=== PATIENT | male | born 1985 | race African-American/Black ===

== ENCOUNTER 2017-11-24 22:44 | Inpatient (IN) | payer BC ==
[~2017-11-24] VITALS: Ht 177.8 cm; Wt 143.3 kg
[2017-11-24 22:55] VITALS: BP 130/90
[2017-11-24 23:23] LABS: ABSOLUTE BASOPHILS 0.2 thou/uL (0.0-0.2); ABSOLUTE EOSINOPHILS 0.1 thou/uL (0.0-0.7); ABSOLUTE LYMPHOCYTES 2.6 thou/uL (0.8-5.3); ABSOLUTE NEUTROPHILS 10.3 thou/uL (1.6-8.1); BASOPHILS 1.2 %; EOSINOPHILS 0.6 %; HEMATOCRIT 45.4 % (42.0-52.0); HEMOGLOBIN 15.5 gm/dL (14.0-18.0); LYMPHOCYTES 18.3 %; MCH 30.4 pg (26.0-34.0); MCHC 34.1 g/dL (28.0-37.0); MCV 89.1 fL (80.0-100.0); MONOCYTES 6.8 %; MPV 8.3 fl. (7.2-11.1); NUCLEATED RBCS 0 /100WBC; PLATELET COUNT* 264 thou/uL (150-400); POLYS 73.1 %; RBC 5.09 mil/uL (4.50-6.00); RDW-CV 13.3 % (10.5-14.5); WBC 14.1 thou/uL (4.0-11.0)
[2017-11-24 23:32] LABS: ANION GAP 10 mmol/L (7-16); BUN 14 mg/dL (7-18); CALCIUM 9.6 mg/dL (8.5-10.1); CHLORIDE 98 mmol/L (98-107); CO2 26 mmol/L (21-32); GLUCOSE 96 mg/dL (70-99); POTASSIUM 4.4 mmol/L (3.5-5.1); SODIUM 134 mmol/L (136-145)
[2017-11-24 23:35] LABS: URINE BLOOD 3+ (Negative); URINE CLARITY CLEAR; URINE COLOR BROWN; URINE GLUCOSE-RANDOM NEGATIVE (Negative); URINE KETONES NEGATIVE (Negative); URINE LEUKOCYTES-REFLEX NEGATIVE (Negative); URINE NITRITE-REFLEX NEGATIVE (Negative); URINE PROTEIN 2+ (Negative); URINE SPECIFIC GRAVITY 1.025 (1.005-1.030)
[2017-11-24 23:36] LABS: URINE BILIRUBIN 1+ (Negative)
[2017-11-24 23:38] LABS: ICTOTEST (BILI CONFIRMATORY) Negative (Negative)
[2017-11-24 23:43] LABS: AMORPHOUS URATES Moderate /LPF (None Seen); BACTERIA-REFLEX >30 Many /HPF (None Seen); COARSE GRANULAR CASTS 0-3 Few /LPF (None Seen); FINE GRANULAR CASTS 0-3 Few /LPF (None Seen); MUCUS 4-6 Moderate strn/LPF (None Seen); SQUAMOUS 0-3 Few /LPF (0-3); URINE RBC >20 Many /HPF (0-2); URINE WBC-REFLEX 0-5 Rare /HPF (0-5)
[2017-11-24 23:46] LABS: ALBUMIN 3.9 g/dL (3.4-5.0); ALKALINE PHOSPHATASE 66 U/L (46-116); SGOT 1378 U/L (15-37); SGPT 359 U/L (30-65); TOTAL BILIRUBIN 1.3 mg/dL (<0.1-1.0); TOTAL PROTEIN 8.3 g/dL (6.4-8.2)
[2017-11-25 00:07] LABS: AMP/METHAMP Negative (Negative); BARBITURATES Negative (Negative); BENZODIAZEPINES Negative (Negative); COCAINE Negative (Negative); METHADONE Negative (Negative); OPIATES Negative (Negative); PCP Negative (Negative); THC Negative (Negative)
[2017-11-25 01:50] VITALS: BP 134/78
[2017-11-25 02:05] VITALS: BP 121/82
[2017-11-25] MEDS ORDERED: TYLENOL325 MG PO (03:24)
[2017-11-25 08:00] VITALS: BP 129/84
[2017-11-25 08:13] LABS: CREATININE 1.1 mg/dL (0.6-1.3); MAGNESIUM 2.2 mg/dL (1.8-2.4); POTASSIUM 4.6 mmol/L (3.5-5.1)
--- NOTE | 2017-11-25 12:42 | EKG ---
[place] [address] ELECTROCARDIOGRAM REPORT Name: DEION ROCHA Room: [place] [address] ADM IN M.R.#: [id number] Admission: 11/25/17 Attend Phys: Ag Sanders, Discharge: Date of : 83 Report #: [id number] THIS REPORT FOR: //name// [facility] ED Test Date: 2017-11-24 Test Time: 23:07:56 Pat Name: DEION ROCHA Department: Room: [facility] Gender: M Chair Trimmer: MISTI : 1985 Requested By: Cornelia Mims Order Number: [id number] MD: Ernie Freitas Measurements Intervals [place] Rate: 113 P: 26 MT: 145 QRS: 43 QRSD: 80 T: 23 QT: 307 QTc: 421 Interpretive Statements Sinus tachycardia Probable left atrial enlargement Baseline wander in lead(s) V2 No previous ECG available for comparison Electronically Signed On 11-25-2017 12:42:07 AUDIOLOGY ASSISTANT by Ernie Freitas [email or web address] <ELECTRONICALLY SIGNED> By: Altagracia Freitas MD, [facility] 11/25/17 1242 06 06 Altagracia Freitas MD, [facility] /EPI
[2017-11-25 20:00] VITALS: BP 128/72
[2017-11-26] VITALS: BP 138/57
[2017-11-26 04:00] VITALS: BP 129/52
[2017-11-26 08:00] VITALS: BP 123/60
[2017-11-26 12:29] LABS: ABSOLUTE BASOPHILS 0.1 thou/uL (0.0-0.2); ABSOLUTE EOSINOPHILS 0.1 thou/uL (0.0-0.7); ABSOLUTE LYMPHOCYTES 1.8 thou/uL (0.8-5.3); ABSOLUTE MONOCYTES 0.6 thou/uL (0.0-1.2); ABSOLUTE NEUTROPHILS 7.8 thou/uL (1.6-8.1); BASOPHILS 0.5 %; EOSINOPHILS 0.6 %; HEMATOCRIT 39.6 % (42.0-52.0); LYMPHOCYTES 17.6 %; MCH 30.6 pg (26.0-34.0); MCHC 33.1 g/dL (28.0-37.0); MCV 92.5 fL (80.0-100.0); MONOCYTES 5.8 %; MPV 8.6 fl. (7.2-11.1); NUCLEATED RBCS 0 /100WBC; POLYS 75.5 %; RBC 4.28 mil/uL (4.50-6.00); RDW-CV 13.2 % (10.5-14.5); WBC 10.4 thou/uL (4.0-11.0)
[2017-11-26 12:38] LABS: HEMOGLOBIN 13.1 gm/dL (14.0-18.0)
[2017-11-26 12:54] LABS: ALBUMIN 2.8 g/dL (3.4-5.0); ALKALINE PHOSPHATASE 51 U/L (46-116); ANION GAP 2 mmol/L (7-16); BUN 13 mg/dL (7-18); CALCIUM 8.7 mg/dL (8.5-10.1); CHLORIDE 107 mmol/L (98-107); CO2 29 mmol/L (21-32); CREATININE 0.9 mg/dL (0.6-1.3); GLUCOSE 110 mg/dL (70-99); POTASSIUM 4.4 mmol/L (3.5-5.1); SGOT 664 U/L (15-37); SGPT 258 U/L (30-65); SODIUM 138 mmol/L (136-145); TOTAL BILIRUBIN 0.6 mg/dL (<0.1-1.0); TOTAL PROTEIN 6.4 g/dL (6.4-8.2)
[2017-11-26 13:12] LABS: HEPATITIS B SURFACE AG Negative (Negative)
[2017-11-26 13:29] LABS: PLATELET COUNT* 168 thou/uL (150-400)
[2017-11-26 16:00] VITALS: BP 126/62
[2017-11-27 00:54] VITALS: BP 165/87
[2017-11-27 04:46] LABS: ABSOLUTE EOSINOPHILS 0.1 thou/uL (0.0-0.7); ABSOLUTE LYMPHOCYTES 2.3 thou/uL (0.8-5.3); ABSOLUTE MONOCYTES 0.8 thou/uL (0.0-1.2); ABSOLUTE NEUTROPHILS 6.1 thou/uL (1.6-8.1); BASOPHILS 0.3 %; EOSINOPHILS 1.1 %; HEMATOCRIT 39.6 % (42.0-52.0); HEMOGLOBIN 13.3 gm/dL (14.0-18.0); LYMPHOCYTES 24.8 %; MCH 30.5 pg (26.0-34.0); MCHC 33.7 g/dL (28.0-37.0); MCV 90.5 fL (80.0-100.0); MONOCYTES 8.9 %; MPV 8.6 fl. (7.2-11.1); NUCLEATED RBCS 0 /100WBC; PLATELET COUNT* 227 thou/uL (150-400); POLYS 64.9 %; RBC 4.37 mil/uL (4.50-6.00); RDW-CV 13.4 % (10.5-14.5); WBC 9.5 thou/uL (4.0-11.0)
[2017-11-27 04:49] VITALS: BP 119/51
[2017-11-27 05:09] LABS: ALBUMIN 2.8 g/dL (3.4-5.0); ALKALINE PHOSPHATASE 53 U/L (46-116); ANION GAP 2 mmol/L (7-16); BUN 13 mg/dL (7-18); CALCIUM 8.4 mg/dL (8.5-10.1); CHLORIDE 108 mmol/L (98-107); CO2 31 mmol/L (21-32); CREATININE 0.9 mg/dL (0.6-1.3); GLUCOSE 99 mg/dL (70-99); POTASSIUM 3.8 mmol/L (3.5-5.1); SGOT 520 U/L (15-37); SGPT 246 U/L (30-65); SODIUM 141 mmol/L (136-145); TOTAL BILIRUBIN 0.5 mg/dL (<0.1-1.0); TOTAL PROTEIN 6.3 g/dL (6.4-8.2)
[2017-11-27 08:15] VITALS: BP 119/57
[2017-11-27 16:22] VITALS: BP 114/56
[2017-11-27 21:20] VITALS: BP 114/56
[2017-11-28 04:45] LABS: ABSOLUTE EOSINOPHILS 0.1 thou/uL (0.0-0.7); ABSOLUTE LYMPHOCYTES 1.7 thou/uL (0.8-5.3); ABSOLUTE MONOCYTES 0.7 thou/uL (0.0-1.2); ABSOLUTE NEUTROPHILS 6.3 thou/uL (1.6-8.1); BASOPHILS 0.4 %; EOSINOPHILS 0.9 %; HEMATOCRIT 39.5 % (42.0-52.0); HEMOGLOBIN 13.4 gm/dL (14.0-18.0); LYMPHOCYTES 19.6 %; MCH 30.8 pg (26.0-34.0); MCHC 33.9 g/dL (28.0-37.0); MCV 90.8 fL (80.0-100.0); MONOCYTES 7.6 %; MPV 8.5 fl. (7.2-11.1); NUCLEATED RBCS 0 /100WBC; PLATELET COUNT* 247 thou/uL (150-400); POLYS 71.5 %; RBC 4.35 mil/uL (4.50-6.00); RDW-CV 13.2 % (10.5-14.5); WBC 8.8 thou/uL (4.0-11.0)
[2017-11-28 04:50] LABS: ALBUMIN 2.9 g/dL (3.4-5.0); CALCIUM 8.7 mg/dL (8.5-10.1); CREATININE 0.9 mg/dL (0.6-1.3); POTASSIUM 4.2 mmol/L (3.5-5.1); TOTAL BILIRUBIN 0.4 mg/dL (<0.1-1.0); TOTAL PROTEIN 6.6 g/dL (6.4-8.2)
[2017-11-28 04:54] LABS: PREALBUMIN 27.1 mg/dL (18.0-35.7)
[2017-11-28 08:00] VITALS: BP 121/62
[2017-11-28 16:18] VITALS: BP 126/67
[2017-11-28 19:45] VITALS: BP 116/66
[2017-11-29 00:12] VITALS: BP 120/81
[2017-11-29 04:00] LABS: ABSOLUTE EOSINOPHILS 0.1 thou/uL (0.0-0.7); ABSOLUTE LYMPHOCYTES 2.3 thou/uL (0.8-5.3); ABSOLUTE MONOCYTES 0.7 thou/uL (0.0-1.2); ABSOLUTE NEUTROPHILS 6.5 thou/uL (1.6-8.1); BASOPHILS 0.4 %; EOSINOPHILS 1.3 %; HEMATOCRIT 38.6 % (42.0-52.0); LYMPHOCYTES 23.4 %; MCH 30.7 pg (26.0-34.0); MCHC 33.8 g/dL (28.0-37.0); MCV 90.8 fL (80.0-100.0); MONOCYTES 7.6 %; MPV 8.4 fl. (7.2-11.1); NUCLEATED RBCS 0 /100WBC; PLATELET COUNT* 244 thou/uL (150-400); POLYS 67.3 %; RBC 4.25 mil/uL (4.50-6.00); RDW-CV 13.3 % (10.5-14.5); WBC 9.6 thou/uL (4.0-11.0)
[2017-11-29 04:52] LABS: ALBUMIN 2.9 g/dL (3.4-5.0); CALCIUM 8.8 mg/dL (8.5-10.1); CREATININE 0.8 mg/dL (0.6-1.3); POTASSIUM 4.3 mmol/L (3.5-5.1); TOTAL BILIRUBIN 0.4 mg/dL (<0.1-1.0); TOTAL PROTEIN 6.1 g/dL (6.4-8.2)
[2017-11-29 10:52] VITALS: BP 120/81
[2017-11-29 11:14] VITALS: BP 138/91
[2017-11-29 11:15] VITALS: BP 120/81
[2017-11-29 12:05] VITALS: BP 120/81
--- NOTE | 2017-12-04 12:38 | CON ---
[address] [address] CONSULTATION Name: DEION ROCHA Room: [address] IN M.R.#: [id number] Admission: 11/25/17 Attend Phys: Ag Sanders, Discharge: 11/29/17 Date of : 83 Report #: [id number] THIS REPORT FOR: //name// CC: [facility] physician/PCP Ag Sanders DATE OF SERVICE: 11/27/2017 REASON FOR NEPHROLOGY CONSULTATION: Rhabdomyolysis. CHIEF COMPLAINT: Muscle pain. HISTORY OF PRESENT ILLNESS: This is a 32-year-old male who has no past medical history, came in with muscle aches. The patient had little too much alcohol last Sunday and after that he did not drink much water and he kept working for the next 2-3 days and then started feeling bad and came to the hospital. He was found to have a CPK of more than 20,000 with a creatinine of 1.0. He was started on IV hydration with normal saline at 50 mL an hour. Despite that, his CPK is still more than 20,000. His urine had hematuria also in it. The patient initially had very dark urine and reports that his urine has not cleared out. His muscle aches are doing much better now. REVIEW OF SYSTEMS: The patient is feeling much better. His urine is clearing out. Ten point review of systems done negative. PAST MEDICAL AND SURGICAL HISTORY: He denies. HOME MEDICATIONS: Tylenol. Otherwise, no home medications. ALLERGIES: ASPIRIN AND SHRIMP. SOCIAL HISTORY: He is a social drinker. No smoking or any other recreational drug use. FAMILY HISTORY: Noncontributory to this. PHYSICAL EXAMINATION: VITAL SIGNS: Blood pressure is 119/57, respiratory rate 16, pulse rate is 81, temperature is 36.9 and pulse ox 96% on room air. GENERAL: He is awake, alert, oriented x 3, in no acute distress. HEAD, EYES, EARS, NOSE AND THROAT: Mucous membranes are moist. NECK: No JVD. CHEST: Clear to auscultation bilaterally. No crackles or wheezing. CARDIOVASCULAR: S1, S2 normal. No murmurs. SKIN: Warm and dry. He has multiple tattoos present. ABDOMEN: Soft, nondistended, nontender. [place] [address] CONSULTATION Name: DEION ROCHA FRANKY Room: [address]#: [id number] Admission: 11/25/17 Attend Phys: Ag Sanders, Discharge: 11/29/17 Date of : 83 Report #: [id number] EXTREMITIES: He has no lower extremity edema, symmetrical extremities. NEUROLOGIC: Grossly neurological function is intact. PSYCHIATRIC: Mood and affect seem to be normal. LABORATORY DATA: Hemoglobin is 13.3, creatinine is 0.9. CPK is more than 20,000. Urine has 2+ protein, 3+ blood, more than 20 rbc's, and some fine and coarse granular casts, but this urine was on admission on 11/24/2017. IMAGING: No imaging to be reviewed. ASSESSMENT: 1. Rhabdomyolysis, severe. 2. Hematuria. 3. Transaminitis. PLAN: The patient has severe rhabdomyolysis. His CPK needs to be monitored as an outpatient. I would recommend a rheumatology workup to make sure he does not have polymyositis. Thankfully, his creatinine is normal. He does have some hematuria on admission. This should be monitored as an outpatient, either repeated at his PMDs office or he should follow up with us. Transaminitis was most likely because of alcohol intake and it is now improving. Thank you for this consultation. <ELECTRONICALLY SIGNED> By: Sharda Vance MD 12/04/17 1238 1031 1913Apoli Vance MD /nt
== END 2017-11-29 12:07 | disposition home or self-care (01) | DRG 557 ==
LOC: M.ERS 22:44 → M.2W 11-25 01:03 → M.TBA-ER 11-25 01:03 → M.2W 11-25 01:57 → M.ORTHSURG 11-26 15:08
PROVIDERS: Emergency Medicine; Internal Medicine; Physician Assistant; ADMIT Family Medicine
DX: M62.82 Rhabdomyolysis (principal); N17.0 Acute kidney failure with tubular necrosis; E86.0 Dehydration; T51.91XA Toxic effect of unspecified alcohol, accidental (unintentional), initial encounter; R74.0 Nonspecific elevation of levels of transaminase and lactic acid dehydrogenase [LDH]; R31.9 Hematuria, unspecified; F12.90 Cannabis use, unspecified, uncomplicated; F14.90 Cocaine use, unspecified, uncomplicated; F17.210 Nicotine dependence, cigarettes, uncomplicated; Z88.6 Allergy status to analgesic agent; Y92.89 Other specified places as the place of occurrence of the external cause; Z79.899 Other long term (current) drug therapy

== ENCOUNTER 2018-12-29 22:12 | Emergency (ER) | payer BC ==
[~2018-12-29] VITALS: Ht 177.8 cm
[~2018-12-29 22:12] MED LIST: TYLENOL325 MG PO
[2018-12-29 23:02] LABS: ABSOLUTE BASOPHILS 0.1 thou/uL (0.0-0.2); ABSOLUTE EOSINOPHILS 0.3 thou/uL (0.0-0.7); ABSOLUTE LYMPHOCYTES 1.7 thou/uL (0.8-5.3); ABSOLUTE MONOCYTES 0.7 thou/uL (0.0-1.2); ABSOLUTE NEUTROPHILS 7.8 thou/uL (1.6-8.1); HEMATOCRIT 41.6 % (42.0-52.0); HEMOGLOBIN 14.3 gm/dL (14.0-18.0); LYMPHOCYTES 16.3 %; MCH 30.8 pg (26.0-34.0); MCHC 34.3 g/dL (28.0-37.0); MCV 89.7 fL (80.0-100.0); MPV 8.2 fl. (7.2-11.1); NUCLEATED RBCS 0 /100WBC; PLATELET COUNT* 210 thou/uL (150-400); POLYS 72.7 %; RBC 4.64 mil/uL (4.50-6.00); WBC 10.7 thou/uL (4.0-11.0)
[2018-12-29 23:12] LABS: PROTIME 9.9 Seconds (9.20-11.50)
[2018-12-29 23:19] LABS: ANION GAP 8 mmol/L (7-16); BUN 11 mg/dL (7-18); CALCIUM 9.3 mg/dL (8.5-10.1); CHLORIDE 105 mmol/L (98-107); CO2 29 mmol/L (21-32); CREATININE 1.2 mg/dL (0.6-1.3); GLUCOSE 101 mg/dL (70-99); POTASSIUM 4.7 mmol/L (3.5-5.1); SODIUM 142 mmol/L (136-145); TROPONIN-I LEVEL <0.06 ng/mL (<0.06)
[2018-12-29 23:21] LABS: ALBUMIN 3.7 g/dL (3.4-5.0); ALKALINE PHOSPHATASE 72 U/L (46-116); SGOT 33 U/L (15-37); SGPT 81 U/L (30-65); TOTAL BILIRUBIN 0.4 mg/dL (<0.1-1.0); TOTAL PROTEIN 7.8 g/dL (6.4-8.2)
[2018-12-30 00:35] LABS: URINE BILIRUBIN NEGATIVE (Negative); URINE BLOOD NEGATIVE (Negative); URINE CLARITY CLEAR; URINE COLOR YELLOW; URINE GLUCOSE-RANDOM NEGATIVE (Negative); URINE KETONES NEGATIVE (Negative); URINE LEUKOCYTES-REFLEX NEGATIVE (Negative); URINE NITRITE-REFLEX NEGATIVE (Negative); URINE PROTEIN NEGATIVE (Negative); URINE UROBILINOGEN 0.2 E.U./dl (0.2-1.0)
[2018-12-30 00:42] LABS: AMP/METHAMP Negative (Negative); BARBITURATES Negative (Negative); BENZODIAZEPINES Negative (Negative); COCAINE POSITIVE (Negative); METHADONE Negative (Negative); OPIATES Negative (Negative); PCP Negative (Negative); THC Negative (Negative)
[2018-12-30 01:30] VITALS: BP 117/78
--- NOTE | 2018-12-30 17:40 | EKG ---
[place] [address] ELECTROCARDIOGRAM REPORT Name: [facility]FINADEION [id number] Admission: 12/29/18 Attend Phys: Discharge: 12/30/18 Date of : 83 Report #: [id number] THIS REPORT FOR: //name// [facility] ED Test Date: 2018-12-29 Test Time: 22:20:25 Pat Name: DEION ROCHA Department: Room: Gender: M Web Pressman: SARAY : 1985 Requested By: Farhan Gomez Order Number: [id number] MD: Vahe Emerson Measurements Intervals [facility] Rate: 90 P: 21 AK: 145 QRS: 34 QRSD: 91 T: 14 QT: 345 QTc: 422 Interpretive Statements Sinus rhythm Compared to ECG 11/24/2017 23:07:56 Sinus tachycardia no longer present Electronically Signed On 12-30-2018 17:39:48 CDT by Vahe Emerson [email or web address] <ELECTRONICALLY SIGNED> By: Vahe Emerson MD, [facility] 12/30/18 1739 2220 2220 Vahe Emerson MD, FAC /EPI
== END 2018-12-30 01:30 | disposition left against medical advice (07) ==
LOC: M.ERS 22:12
PROVIDERS: Emergency Medicine Emergency Medical Services
DX: R20.0 Anesthesia of skin (principal); Z88.6 Allergy status to analgesic agent; Z91.09 Other allergy status, other than to drugs and biological substances